=== PATIENT | female | born 2000 | race Asian ===

== ENCOUNTER 2023-08-03 09:36 | Outpatient (REF) | payer OTHER, SELFPAY ==
--- NOTE | ~2023-08-03 | US_ITS ---
EXAMINATION: US PELVIS CLINICAL INFORMATION: Right ovarian cyst. 23 y/o LMP 07/27/23 COMPARISON: None available. TECHNIQUE: Ultrasound of the pelvis is performed using both transabdominal and transvaginal transducers along with Doppler. Transvaginal imaging is performed due to inadequate visualization transabdominally. FINDINGS: Uterus: The uterus is anteverted and measures 7.4 x 3.6 x 3.5 cm. The double wall endometrial thickness is 3 mm. The uterus is smooth in contour and has normal myometrial echogenicity. No visible fibroid. Adnexa: Both ovaries are visualized. There is normal color flow to the adnexa. There is no ovarian torsion. There is no pelvic ascites or fluid collection. Right ovary measures 2.9 x 1.6 x 2.0 cm. Left ovary measures 2.9 x 1.6 x 2.5 cm. Trace free fluid in the cul-de-sac. US/US pelvic and transvaginal IMPRESSION: Unremarkable pelvic ultrasound.
== END 2023-08-03 09:37 | disposition home or self-care (01) ==
LOC: HO.UMASIMG 09:36
PROVIDERS: Visit Provider Family Medicine
DX: N83.291 Other ovarian cyst, right side (principal)
CPT/HCPCS: 76830; 76856